=== PATIENT | female | born 1975 | race Caucasian/White ===

== ENCOUNTER → 2019-05-28 | Outpatient (CLI) | payer BC ==
[~2019-05-28] MED LIST: METHACHOLINE KIT (J7674) INH ONE
--- NOTE | 2019-05-28 08:45 | PFTRPT ---
Height: 63.50 Inches Weight: 127.00 Lbs BSA: 1.60 Diagnosis: R06.02 DATE OF PROCEDURE: 05/28/2019 ORDERED BY: Dr. Hernando Salcido INTERPRETATION: Study of excellent technical quality. Under protocol, methacholine was administered. At a dose of 2.5 mg or 13.875 CDUs, a 30% decline in the FEV1 was noted. PC of 0.49 is significant. Flow rates did return to baseline post bronchodilator administration. IMPRESSION: Positive methacholine challenge study. MTDD
== END ==
LOC: M CARPUL 07:14 → MERGE 08:00
PROVIDERS: ATTEND Internal Medicine Pulmonary Disease
DX: R06.02 Shortness of breath (principal)